=== PATIENT | male | born 1980 | race American Indian/Alaskan Native ===

== ENCOUNTER 2016-12-31 22:05 | Emergency (ER) | payer SELFPAY ==
[2017-01-01] MEDS ORDERED: ZOFRAN IV ONE (00:06)
[2017-01-01] MEDS ORDERED: TORADOL IV ONE (00:06)
[2017-01-01] MEDS ORDERED: ZOFRAN ONE (00:06)
[2017-01-01] MEDS ORDERED: NACL 0.9% 1000 ML 1,000 ML ONE (00:07)
[2017-01-01] MEDS ORDERED: NACL 0.9% 1000 ML 1,000 ML IV ONE (00:07)
[2017-01-01 02:15] VITALS: BP 120/84
--- NOTE | 2017-01-01 02:34 | Emergency Department Report ---
ED Recheck HPI - General Chief Complaint: Recheck/Abnormal Lab/Rx Stated Complaint: MED REFILL Source: patient Mode of arrival: Ambulatory Limitations: No Limitations - History of Present Illness Initial Comments: This is a 36-year-old male well-nourished with nontoxic or ill in appearance but presented to the ED for Lamictal refill. Patient stated that he was diagnosed with seizures many years ago with a last seizure activity of 3 years ago. Patient stated he is taking Lamictal on for the milligrams twice a day that was prescribed by a neurologist. Patient stated does not have a current neurologist because he just came to half-way. Patient denies any seizure activities. Denies chest pain, shortness of breath, headaches, blurry vision, visual changes, stiff neck, bowel pain, fever or chills. Patient also complains of toothache. Patient denies any facial swelling. Denies pus or drainage. Allergies aspirin. Denies past medical history besides seizures. MD Complaint: medication refill request, other (tootache) Symptoms Since Prior Visit: no new symptoms Associated Symptoms: none. denies: fever, chills, shortness of breath, rash, malaise, nasuea, abdominal pain - Related Data Previous Rx's Medication Instructions Recorded Last Taken Type lamoTRIgine [LaMICtal] 150 mg PO BID #60 tablet 04/27/14 04/16/15 Rx Amoxicillin/K Clav Tab [Augmentin 1 tab PO Q12HR 10 Days 01/01/17 Unknown Rx 875 mg] lamoTRIgine [LaMICtal] 150 mg PO BID #60 tab 01/01/17 Unknown Rx Allergies Allergy/AdvReac Type Severity Reaction Status Date / Time aspirin AdvReac Unknown Verified 04/16/15 19:19 ED Review of Systems ROS: Stated complaint: MED REFILL Other details as noted in HPI Constitutional: denies: chills, fever Eyes: denies: eye pain, eye discharge, vision change ENT: denies: ear pain, throat pain Respiratory: denies: cough, shortness of breath, wheezing Cardiovascular: denies: chest pain, palpitations Endocrine: no symptoms reported Gastrointestinal: denies: abdominal pain, nausea, diarrhea Genitourinary: denies: urgency, dysuria Musculoskeletal: denies: back pain, joint swelling, arthralgia Skin: denies: rash, lesions Neurological: denies: headache, weakness, paresthesias Psychiatric: denies: anxiety, depression Hematological/Lymphatic: denies: easy bleeding, easy bruising ED Past Medical Hx - Past Medical History Previous Medical History?: Yes Hx Seizures: Yes - Surgical History Past Surgical History?: No - Social History Smoking Status: Current Every Day Smoker Substance Use Type: None - Medications Home Medications: Home Medications Medication Instructions Recorded Confirmed Last Taken Type lamoTRIgine [LaMICtal] 150 mg PO BID #60 tablet 04/27/14 04/16/15 04/16/15 Rx Amoxicillin/K Clav Tab [Augmentin 1 tab PO Q12HR 10 Days 01/01/17 Unknown Rx 875 mg] lamoTRIgine [LaMICtal] 150 mg PO BID #60 tab 01/01/17 Unknown Rx ED Physical Exam - General Limitations: No Limitations General appearance: alert, in no apparent distress - Head Head exam: Present: atraumatic, normocephalic, normal inspection - Eye Eye exam: Present: normal appearance, PERRL, EOMI. Absent: scleral icterus, conjunctival injection, nystagmus, periorbital swelling, periorbital tenderness Pupils: Present: normal accommodation - ENT ENT exam: Present: normal orophraynx, mucous membranes moist, TM's normal bilaterally, normal external ear exam - Expanded ENT Exam Expanded Ear exam: Present: normal external inspection Mouth exam: Present: normal external inspection, tongue normal. Absent: drooling, trismus, muffled voice, tongue elevation, laceration Teeth exam: Present: normal inspection, dental caries, fractured tooth # ( multiple), dental tenderness # (multiple), gingival enlargement, other (uvula midline. No signs of inflammation. No swelling. No pus or drainage. No fluctuance. No facial swelling.) Throat exam: Positive: normal inspection. Negative: tonsillar erythema, tonsillomegaly, tonsillar exudate, R peritonsillar mass, L peritonsillar mass - Neck Neck exam: Present: normal inspection, full ROM. Absent: tenderness, meningismus, lymphadenopathy, thyromegaly - Respiratory Respiratory exam: Present: normal lung sounds bilaterally. Absent: respiratory distress, wheezes, rales, rhonchi, stridor, chest wall tenderness, accessory muscle use, decreased breath sounds, prolonged expiratory - Cardiovascular Cardiovascular Exam: Present: regular rate, normal rhythm, normal heart sounds. Absent: bradycardia, tachycardia, irregular rhythm, systolic murmur, diastolic murmur, rubs, gallop - GI/Abdominal GI/Abdominal exam: Present: soft, normal bowel sounds - Rectal Rectal exam: Present: deferred - Extremities Exam Extremities exam: Present: normal inspection, full ROM, normal capillary refill. Absent: tenderness, pedal edema, joint swelling, calf tenderness - Back Exam Back exam: Present: normal inspection, full ROM. Absent: tenderness, CVA tenderness (R), CVA tenderness (L), muscle spasm, paraspinal tenderness, vertebral tenderness, rash noted - Neurological Exam Neurological exam: Present: alert, oriented X3, CN II-XII intact, normal gait, reflexes normal - Expanded Neurological Exam Expanded Patient oriented to: Present: person, place, time Speech: Present: fluid speech Cranial nerves: EOM's Intact: Normal, Gag Reflex: Normal, Tongue Deviation: Normal, Nystagmus: Normal, Facial Sensation: Normal, Facial Palsy with Forehead Movement: Normal, Facial Palsy without Forehead Movement: Normal Cerebellar function: Finger to Nose: Normal, Heel to Lowery: Normal, Romberg: Normal Upper motor neuron: Casey Neglect: Normal, Pronator Drift: Normal, Babinski Sign : Normal, Sensory Extinction: Normal Sensory exam: Upper Extremity Light Touch: Normal, Upper Extremity Pin Prick: Normal, Upper Extremity Temperature: Normal, UE 2 Point Discrimination: Normal, Lower Extremity Light Touch: Normal, Lower Extremity Pin Prick: Normal, Lower Extremity Temperature: Normal, LE 2 Point Discrimination: Normal Motor strength exam: RUE: 5, LUE: 5, RLE: 5, LLE: 5 DTR: bicep (R): 2+, bicep (L): 2+, tricep (R): 2+, tricep (L): 2+, knee (R): 2+ , knee (L): 2+, ankle (R): 2+, ankle (L): 2+ Best Eye Response ([place]): (4) open spontaneously Best Motor Response ([place]): (6) obeys commands Best Verbal Response ([place]): (5) oriented Julieta Total: 15 - Psychiatric Psychiatric exam: Present: normal affect, normal mood - Skin Skin exam: Present: warm, dry, intact, normal color. Absent: rash ED Course Vital Signs 12/31/16 01/01/17 22:35 02:13 Temperature 98.7 F Pulse Rate 65 58 L Respiratory 16 Rate Blood Pressure 120/73 Blood Pressure 120/84 [Left] O2 Sat by Pulse 99 99 Oximetry Critical care attestation.: If time is entered above; I have spent that time in minutes in the direct care of this critically ill patient, excluding procedure time. ED Disposition Clinical Impression: Medication refill, Dental caries, Gingivitis, Toothache Disposition: TO HOME OR SELFCARE Is pt being admited?: No Does the pt Need Aspirin: No Condition: Stable Instructions: Gingivitis (ED), Toothache (ED), Amoxicillin/Clavulanate Potassium (By mouth), Lamotrigine (By mouth) Additional Instructions: Follow-up with a neurologist in 3-5 days. Follow-up with a dentist in 24 hours. Take medication as prescribed. Prescriptions: Amoxicillin/K Clav Tab [Augmentin 875 mg] 1 tab PO Q12HR 10 Days lamoTRIgine [LaMICtal] 150 mg PO BID #60 tab Referrals: CESAR RYDER MD [Staff Physician] - 3-5 Days KIA GERMAN JR, MD [Staff Physician] - 3-5 Days PRIMARY [facility]ARE, [Primary Care Provider] - 3-5 Days [facility] [Outside] - 3-5 Days [facility] [Outside] - 24 Hours
== END 2017-01-01 03:05 | disposition home or self-care (01) ==
LOC: ED 22:05
DX: K02.9 Dental caries, unspecified (principal); K05.10 Chronic gingivitis, plaque induced; R56.9 Unspecified convulsions; F17.200 Nicotine dependence, unspecified, uncomplicated; Z88.6 Allergy status to analgesic agent
CPT/HCPCS: 99282; J7030; J1885; J2405

== ENCOUNTER 2017-09-30 13:38 | Emergency (ER) | payer SELFPAY ==
[2017-09-30 14:00] VITALS: BP 107/63
--- NOTE | 2017-09-30 14:45 | Emergency Department Report ---
Chief Complaint: Medical Clearance Stated Complaint: MEDICATION REFILL Time Seen by Provider: 09/30/17 14:26 - HPI History of Present Illness: Patient is a 37-year-old -[place] male who is here for medication refill. Patient states he would like a prescription for his Lamictal. Patient states that his last seizure was 5 years ago. Patient when asked why he was here in the emergency department states just got out of prison and I need my meds. - ROS Review of Systems: Review of systems is negative other than those elements in HPI - Exam Vital Signs: Vital Signs 09/30/17 13:58 Temperature 97.6 F Pulse Rate 64 Respiratory 18 Rate Blood Pressure 107/63 O2 Sat by Pulse 100 Oximetry Physical Exam: Patient is a and O 3 heart and lungs were normal neuro exam is within normal limits. MSE screening note: Focused history and physical exam performed. Due to findings the following was ordered: ED Medical Decision Making - Medical Decision Making Patient is presenting here for medication refill. We instructed the patient that he was a non-medical emergency since especially since he hasn't had a seizure in 5 years and that there were cheaper options for this patient to get his medications. Patient was made and medical emergency and opted not to pay the hospital co-pay and will be discharged home. We tried to give the patient information for [facility] to get refills of his medication and patient stormed out without this information ED Disposition for MSE Clinical Impression: Medication refill Disposition: Z-07 MED SCREENING EXAM-LEFT Is pt being admited?: No Does the pt Need Aspirin: No Condition: Stable Referrals: PRIMARY CARE, [Primary Care Provider] - 3-5 Days
== END 2017-09-30 14:41 | disposition left against medical advice (07) ==
LOC: ED 13:38
DX: Z76.0 Encounter for issue of repeat prescription (principal); Z53.21 Procedure and treatment not carried out due to patient leaving prior to being seen by health care provider

== ENCOUNTER 2021-06-05 19:55 | Emergency (ER) | payer SELFPAY ==
--- NOTE | 2021-06-05 22:10 | Emergency Department Report ---
Minor Respiratory - HPI Chief Complaint: Earache Stated Complaint: EAR PAIN Time Seen by Provider: 06/05/21 21:52 Duration: 1 Day Minor Respiratory: Yes Able to Tolerate Fluids, Yes Ear Pain, Yes Sick Contacts, No Rhinorrhea, No Sore Throat, No Cough, No Hemoptysis, No Chest Pain, No Shortness of Breath, No Fever Other History: Chief complaint ear pain. This is a 40-year-old male who presents with left-sided earache for 1 day. No other symptoms. Denies fever, denies cough, denies trauma. Denies body aches. He had a home Covid test was negative. Past medical history seizure disorder. He denies documentation to return to work. ED Review of Systems ROS: Stated complaint: EAR PAIN Other details as noted in HPI Constitutional: denies: chills, fever, malaise ENT: ear pain. denies: throat pain Respiratory: denies: cough, shortness of breath Gastrointestinal: denies: abdominal pain ED Past Medical Hx - Past Medical History Previous Medical History?: Yes Hx Seizures: Yes - Surgical History Past Surgical History?: No - Social History Smoking Status: Current Every Day Smoker Substance Use Type: Marijuana - Medications Home Medications: Home Medications Medication Instructions Recorded Confirmed Last Taken Type lamoTRIgine [LaMICtal] 150 mg PO BID #60 tablet 04/27/14 04/16/15 04/16/15 Rx Amoxicillin/K Clav Tab [Augmentin 1 tab PO Q12HR 10 Days tab 01/01/17 Unknown Rx 875 mg] lamoTRIgine [LaMICtal] 150 mg PO BID #60 tab 01/01/17 Unknown Rx Minor Respiratory Exam - Exam General: Vital signs noted. No distress. Alert and acting appropriately. Bilateral tympanic membranes within normal limits no erythema no effusion HEENT: Yes Moist Mucous Membranes, No Pharyngeal Erythema, No Pharyngeal Exudates, No Rhinorrhea, No Conjuctival Injection Ear: Neither TM Bulge, Neither TM Erythema Neck: Yes Adenopathy Lungs: Yes Good Air Exchange, No Wheezes Heart: Yes Regular, No Murmur Neurologic: Alert and oriented, no deficits. Musculoskeletal: Unremarkable. ED Course Vital Signs 06/05/21 20:06 Temperature 97.3 F L Pulse Rate 66 Respiratory 18 Rate Blood Pressure 117/69 O2 Sat by Pulse 97 Oximetry ED Medical Decision Making - Medical Decision Making Left earache no evidence of otitis media or trauma possible eustachian tube dysfunction due to allergic rhinitis. Recommend [id number] medication. Refer to outpatient medicine physician. Patient is currently pain-free symptom- free. Critical care attestation.: If time is entered above; I have spent that time in minutes in the direct care of this critically ill patient, excluding procedure time. ED Disposition Clinical Impression: Earache, left Disposition: 01 HOME / SELF CARE / HOMELESS Is pt being admited?: No Does the pt Need Aspirin: No Condition: Stable Instructions: Earache, Adult Referrals: ZELDA MAYEN MD [Staff Physician] - as needed Forms: Work/School Release Form(ED)
[2021-06-05 22:11] VITALS: BP 132/85
== END 2021-06-05 22:31 | disposition home or self-care (01) ==
LOC: ED 19:55
DX: H92.02 Otalgia, left ear (principal); F17.200 Nicotine dependence, unspecified, uncomplicated; F12.90 Cannabis use, unspecified, uncomplicated; Z88.6 Allergy status to analgesic agent; Z79.899 Other long term (current) drug therapy
CPT/HCPCS: 99282